=== PATIENT | female | born 1930 | race African-American/Black ===

== ENCOUNTER 2018-02-19 21:26 | Emergency (ER) | payer MEDICARE, OTHER ==
[~2018-02-19] VITALS: Ht 165.1 cm; Wt 54.6 kg
[~2018-02-19 21:26] MED LIST: CLOP75TA PO; EZET1TAB28 PO; LYR50 PO; XALOS OP
[2018-02-19 21:30] VITALS: BP 137/63
--- NOTE | 2018-02-19 21:35 | NUR ---
PT ASSISTED BACK TO LOBBY
--- NOTE | 2018-02-19 22:57 | NUR ---
PT AMBULATED TO BED 10. GAVE REPORT TO ABHI HAAS
--- NOTE | 2018-02-19 23:00 | NUR ---
87/F BIB DAUGHTER, C/O 06/03 INTERMITTENT ACHING L ARM, L SHOULDER, L HIP AND L LATERAL SIDE PAIN, X4 DAYS. PT REPORTS TAKING TYLENOL AT 1400 WITH LITTLE RELIEF. PT DENIES FEVER, CP, COUGH, N/V/D, DYSURIA. SKIN IS INTACT, PINK/WARM/DRY, NO OBVIOUS TRAUMA NOTED; HX DM, OSTEOPOROSIS, CARDIAC D/O, ARTHRITIS. AAOX4, PERRL, AMBULATES WITH ASSIST, PT NOTED WITH HUNCHED POSTURE; LUNGS CLEAR BL, BREATHING UNLABORED; HR EVEN AND REGULAR, BL PERIPHERAL PULSES PRESENT; BS ACTIVE X4, NO TENDERNESS TO PALPATION; VSS; PATIENT POSITIONED FOR COMFORT; HOB ELEVATED; BEDRAILS UP X2; BED DOWN.
[2018-02-20] MEDS ORDERED: ONDANSETRON 4 MG/2 ML VIAL IVP ONE (00:55)
[2018-02-20] MEDS ORDERED: MORPHINE SULFATE 2 MG/ML SYR IVP ONE (00:55)
[2018-02-20 01:25] LABS: BASOPHILS # (AUTO) 0.1 K/uL (0.00-0.22); BASOPHILS % (AUTO) 1.4 % (0.0-2.0); EOSINOPHILS # (AUTO) 0.1 K/uL (0-0.4); EOSINOPHILS % (AUTO) 2.1 % (0.0-4.0); HEMATOCRIT 36.3 % (36-48); HEMOGLOBIN 11.8 g/dL (12.0-16.0); LYMPHOCYTES # (AUTO) 1.8 K/uL (2.5-16.5); LYMPHOCYTES % (AUTO) 47.6 % (20.5-51.1); MEAN CORPUSCULAR HEMOGLOBIN 31 pg (27-31); MEAN CORPUSCULAR HGB CONC 33 g/dL (33-37); MEAN CORPUSCULAR VOLUME 93.9 fL (80-94); MONOCYTES # (AUTO) 0.4 K/uL (0.8-1.0); MONOCYTES % (AUTO) 9.7 % (1.7-9.3); NEUTROPHILS # (AUTO) 1.5 K/uL (1.8-7.7); NEUTROPHILS % (AUTO) 39.2 % (42.2-75.2); PLATELET COUNT (AUTO) 221 K/uL (140-450); RED BLOOD CELL COUNT(AUTO) 3.86 MIL/uL (4.20-5.40); RED CELL DISTRIBUTION WIDTH 13.3 % (11.6-13.7); WHITE BLOOD COUNT (AUTO) 3.8 K/uL (4.8-10.8)
--- NOTE | 2018-02-20 01:29 | NUR ---
IV 20GA RT A/C DONE, IVP MEDS GIVEN-NADR AT THIS TIME. BLOOD SENT TO LAB
[2018-02-20 01:41] LABS: ANION GAP 9.8 (8-16); CARBON DIOXIDE 29.3 mmol/L (21-32); CHLORIDE 103 mmol/L (98-107); CREATININE 0.7 mg/dL (0.6-1.3); GLUCOSE 91 mg/dL (74-106); POTASSIUM 4.1 mmol/L (3.5-5.1); SODIUM SERUM 138 mmol/L (136-145); UREA NITROGEN, BLOOD 13 mg/dL (7-18)
[2018-02-20 01:44] LABS: PROTHROMBIN TIME 10.4 secs (10.8-13.4)
[2018-02-20 01:45] LABS: ALBUMIN 3.6 g/dL (3.4-5.0); ASPARTATE AMINOTRANSFERASE 17 U/L (15-37); TOTAL BILIRUBIN 0.3 mg/dL (0.0-1.0)
--- NOTE | 2018-02-20 02:07 | NUR ---
PT RESTING COMFORTABLY IN BED, PT REPORTS RELIEF OF PAIN, ALL NEEDS MET AT THIS TIME.
--- NOTE | 2018-02-20 02:41 | NUR ---
PT TAKEN TO CT
--- NOTE | 2018-02-20 03:00 | NUR ---
PT RETURN FROM CT
[2018-02-20 03:47] VITALS: BP 130/60
--- NOTE | 2018-02-20 03:47 | NUR ---
Patient discharged with v/s stable. Written and verbal after care instructions given and explained. Patient alert, oriented and verbalized understanding of instructions. Ambulatory with steady gait. All questions addressed prior to discharge. ID band removed. Patient advised to follow up with PMD. OTC of TYLENOL 500MG given. Patient educated on indication of medication including possible reaction and side effects. Opportunity to ask questions provided and answered.
== END 2018-02-20 03:47 | disposition home or self-care (01) ==
LOC: MED 21:26
DX: G89.29 Other chronic pain (principal); M25.552 Pain in left hip; M79.1 Myalgia; E11.9 Type 2 diabetes mellitus without complications; I10 Essential (primary) hypertension; M81.0 Age-related osteoporosis without current pathological fracture
CPT/HCPCS: 36415; 70450; 71045; 72125; 73030; 80053; 83880; 84484; 85025; 85610; 85730; 93005; 96374; 96375; 99285; J2270; J2405

== ENCOUNTER 2019-07-30 17:04 | Emergency (ER) | payer MEDICARE, OTHER ==
[~2019-07-30] VITALS: Ht 167.6 cm; Wt 49.0 kg
[2019-07-30 17:08] VITALS: BP 140/71
--- NOTE | 2019-07-30 17:08 | NUR ---
88/F PRESENTS TO ED WITH DAUGHTER, C/O R MEDIAL KNEE PAIN, X1 WEEK. DENIES TRAUMA/INJURY. NO DEFORMITY, SWELLING, BRUISING, ERYTHEMA NOTED. TENDER TO TOUCH. +CMS DISTALLY. PT AWAKE AND ALERT, SKIN NORMAL COLOR LOOSE WARM AND DRY, RR EVEN AND UNLABORED. HX ARTHRITIS, GASTRIC ULCER, HLD
[2019-07-30] MEDS ORDERED: ACETAMINOPHEN 325 MG TAB PO ONE (17:35)
[2019-07-30 17:52] VITALS: BP 140/71
--- NOTE | 2019-07-30 17:52 | NUR ---
Patient discharged with v/s stable. Written and verbal after care instructions given and explained. Patient verbalized understanding. Wheel Chair Assisted with daughter to car, ambulatory with assist to carseat. All questions addressed prior to discharge. Advised to follow up with PMD.
== END 2019-07-30 17:52 | disposition home or self-care (01) ==
LOC: MED 17:04
DX: M17.12 Unilateral primary osteoarthritis, left knee (principal); E11.9 Type 2 diabetes mellitus without complications; I10 Essential (primary) hypertension; M25.571 Pain in right ankle and joints of right foot
CPT/HCPCS: 29505; 99283